=== PATIENT | male | born 1955 | race African-American/Black ===

== ENCOUNTER 2017-02-11 08:12 | Emergency (ER) | payer MEDICAID ==
[~2017-02-11] VITALS: Ht 182.9 cm; Wt 78.0 kg
[2017-02-11] MEDS ORDERED: MORPHINE SULFATE 4 MG/ML, 1ML ONE ×2 (08:49→10:17)
[2017-02-11] MEDS ORDERED: ONDANSETRON 2MG/ML, 2ML ONE ×2 (08:50→10:17)
[2017-02-11] MEDS ORDERED: PANTOPRAZOLE 40 MG IV ONE (08:50)
[2017-02-11] MEDS ORDERED: SODIUM CHLORIDE 0.9% 1,000ML IVBOLUS ONE (09:00)
[2017-02-11] MEDS ORDERED: PANTOPRAZOLE 40 MG IV IVP ONE (09:00)
[2017-02-11] MEDS ORDERED: ONDANSETRON 2MG/ML, 2ML IVPush ONE ×2 (09:00→10:00)
[2017-02-11] MEDS ORDERED: MORPHINE SULFATE 4 MG/ML, 1ML IVPush PRN (09:00)
[2017-02-11] MEDS ORDERED: SODIUM CHLORIDE FLUSH 10ML SYR IVF ONE (09:00)
[2017-02-11 09:27] LABS: BLOOD UREA NITROGEN 26 mg/dL (7-18)
[2017-02-11 09:28] LABS: ASPARTATE AMINO TRANSFERASE 29 U/L (15-37)
[2017-02-11 11:22] LABS: PATH.CAST-FLAG NOT PRESENT; SPERM-FLAG NOT PRESENT; SRC-FLAG NOT PRESENT; XTAL-FLAG NOT PRESENT; YLC-FLAG NOT PRESENT
[2017-02-11 11:54] VITALS: BP 126/79
[2017-02-19] MEDS ORDERED: OMEP-110 PO (13:21)
== END 2017-02-11 11:57 | disposition home or self-care (01) ==
LOC: ED 09:43
DX: R19.7 Diarrhea, unspecified (principal); R11.2 Nausea with vomiting, unspecified; I10 Essential (primary) hypertension
CPT/HCPCS: 36415; 71010; 80053; 81001; 83690; 85025; 85610; 85730; 96361; 96374; 96375; 99285; C9113; J2405; J7030